=== PATIENT | female | born 1980 | race Caucasian/White ===

== ENCOUNTER 2018-12-27 14:05 | Emergency (ER) | payer SELFPAY ==
[2018-12-27] MEDS ORDERED: NACL 0.9% 1000 ML 1,000 ML ONE (14:20)
[2018-12-27 15:36] LABS: Basophils % (Auto) 0.4 % (0.0-1.8); Eosinophils % (Auto) 0.1 % (0.0-4.3); Hematocrit 42.1 % (30.3-42.9); Hemoglobin 14.5 gm/dl (10.1-14.3); Lymphocytes # (Auto) 1.6 K/mm3 (1.2-5.4); Lymphocytes % (Auto) 12.9 % (13.4-35.0); Mean Corpuscular HGB Conc 35 % (30-34); Mean Corpuscular Hemoglobin 31 pg (28-32); Mean Corpuscular Volume 90 fl (79-97); Monocytes # (Auto) 0.5 K/mm3 (0.0-0.8); Platelet Count 237 K/mm3 (140-440); Red Cell Distribution Width 12.5 % (13.2-15.2)
[2018-12-27 15:47] LABS: INR 1.14 (0.87-1.13)
[2018-12-27 15:48] LABS: Partial Thromboplastin Time 25.5 Sec. (24.2-36.6)
[2018-12-27 15:54] LABS: BUN/Creatinine Ratio 17; Blood Urea Nitrogen 12 mg/dL (7-17); Calcium 8.6 mg/dL (8.4-10.2); Hemolysis Index 5
[2018-12-27] MEDS ORDERED: HumuLIN R IV ONE (15:57)
--- NOTE | 2018-12-27 15:59 | Emergency Department Report ---
ED General Adult HPI - General Chief complaint: Syncope Stated complaint: CHEST PAIN Time Seen by Provider: 12/27/18 14:41 Source: patient, family Mode of arrival: Stretcher Limitations: Language Barrier - History of Present Illness Initial comments: 38 year old female with an episode of dizziness and rapid breathing which began at about noon. Later she developed some substernal chest as Her. She denies previous similar episodes. She has had no recent traveling. She denies family history of PE or DVT. I will obtain this history myself in [place]. He also tells me that she had gestational diabetes but that resolved after her . I get the impression that she does not go to the doctor very often. She states that he does not think she was anxious during these episodes. -: Gradual - Related Data Previous Rx's Medication Instructions Recorded Last Taken Type metFORMIN [Glucophage] 500 mg PO BID #60 tablet 12/27/18 Unknown Rx Allergies Allergy/AdvReac Type Severity Reaction Status Date / Time No Known Allergies Allergy Verified 12/27/18 14:20 ED Review of Systems ROS: Stated complaint: CHEST PAIN Other details as noted in HPI Constitutional: other (dizziness). denies: chills, fever Eyes: denies: eye pain, eye discharge, vision change ENT: denies: ear pain, throat pain Respiratory: shortness of breath. denies: cough, wheezing Cardiovascular: chest pain. denies: palpitations Endocrine: no symptoms reported Gastrointestinal: denies: abdominal pain, nausea, diarrhea Genitourinary: denies: urgency, dysuria, discharge Musculoskeletal: denies: back pain, joint swelling, arthralgia Skin: denies: rash, lesions Neurological: denies: headache, weakness, paresthesias Psychiatric: denies: anxiety, depression Hematological/Lymphatic: denies: easy bleeding, easy bruising ED Past Medical Hx - Past Medical History Previous Medical History?: Yes Hx Hypertension: Yes Hx Diabetes: Yes (gestational) - Surgical History Past Surgical History?: No - Social History Smoking Status: Never Smoker Substance Use Type: None - Medications Home Medications: Home Medications Medication Instructions Recorded Confirmed Last Taken Type metFORMIN [Glucophage] 500 mg PO BID #60 tablet 12/27/18 Unknown Rx ED Physical Exam - General Limitations: No Limitations General appearance: alert, in no apparent distress - Head Head exam: Present: atraumatic, normocephalic - Eye Eye exam: Present: normal appearance - ENT ENT exam: Present: mucous membranes moist - Neck Neck exam: Present: normal inspection - Respiratory Respiratory exam: Present: normal lung sounds bilaterally. Absent: respiratory distress - Cardiovascular Cardiovascular Exam: Present: regular rate, normal rhythm. Absent: systolic murmur, diastolic murmur, rubs, gallop - GI/Abdominal GI/Abdominal exam: Present: soft, normal bowel sounds. Absent: distended, tenderness, guarding, rebound, rigid - Extremities Exam Extremities exam: Present: normal inspection - Back Exam Back exam: Present: normal inspection - Neurological Exam Neurological exam: Present: alert, oriented X3, CN II-XII intact. Absent: motor sensory deficit - Psychiatric Psychiatric exam: Present: normal affect, normal mood - Skin Skin exam: Present: warm, dry, intact, normal color. Absent: rash ED Course Vital Signs 12/27/18 12/27/18 14:22 15:44 Temperature 98.7 F Pulse Rate 128 H 81 Respiratory 16 16 Rate Blood Pressure 118/78 Blood Pressure 106/69 [Left] O2 Sat by Pulse 100 96 Oximetry - Reevaluation(s) Reevaluation #1: Have explained in detail to the family and the patient the need for hospitalization. We have identified her diabetes, acidosis, ordered a VQ scan as angiography is not currently available. I've arranged for hospitalization. I've explained the importance of hospitalization and further workup the patient's chest pain. Despite this she has elected to sign out AGAINST MEDICAL ADVICE. She has full mental capacity to make a decision. I can put her on metformin and refer her to the [facility]. She is in need of further diagnostic evaluation that I cannot perform at this time. 12/27/18 16:41 ED Medical Decision Making - Lab Data Result diagrams: 12/27/18 15:16 12/27/18 15:16 Laboratory Results - last 24 hr 12/27/18 12/27/18 12/27/18 14:21 15:16 15:16 WBC 12.7 H RBC 4.70 Hgb 14.5 H Hct 42.1 MCV 90 MCH 31 MCHC 35 H RDW 12.5 L Plt Count 237 Lymph % (Auto) 12.9 L [place] % (Auto) 4.0 Eos % (Auto) 0.1 Baso % (Auto) 0.4 Lymph # 1.6 [place] # 0.5 Eos # 0.0 Baso # 0.0 Seg Neutrophils % 82.6 H Seg Neutrophils # 10.5 H PT 14.3 INR 1.14 H APTT 25.5 D-Dimer 341.68 H Sodium Potassium Chloride Carbon Dioxide Anion Gap BUN Creatinine Estimated GFR BUN/Creatinine Ratio Glucose POC Glucose 331 H Calcium Troponin T 12/27/18 15:16 WBC RBC Hgb Hct MCV MCH MCHC RDW Plt Count Lymph % (Auto) [place] % (Auto) Eos % (Auto) Baso % (Auto) Lymph # [place] # Eos # Baso # Seg Neutrophils % Seg Neutrophils # PT INR APTT D-Dimer Sodium 135 L Potassium 3.8 Chloride 105.3 Carbon Dioxide 18 L Anion Gap 16 BUN 12 Creatinine 0.7 Estimated GFR > 60 BUN/Creatinine Ratio 17 Glucose 323 H POC Glucose Calcium 8.6 Troponin T < 0.010 Critical care attestation.: If time is entered above; I have spent that time in minutes in the direct care of this critically ill patient, excluding procedure time. ED Disposition Clinical Impression: Elevated d-dimer Chest pain Qualifiers: Chest pain type: unspecified Qualified Code(s): R07.9 - Chest pain, unspecified Diabetes Qualifiers: Diabetes mellitus type: type 2 Diabetes mellitus predatory animal exterminator insulin use: without half-way use Diabetes mellitus complication status: with other specified complication Qualified Code(s): E11.69 - Type 2 diabetes mellitus with other specified complication Disposition: DC-07 LEFT AGAINST MED ADVICE Is pt being admited?: No Does the pt Need Aspirin: No Condition: Stable Instructions: Chest Pain (ED), Diabetes Mellitus Type 2 in Adults (ED) Additional Instructions: I have strongly recommended he stay for further evaluation and treatment. He was signed out AGAINST MEDICAL ADVICE. Despite this her refrigerator returned for further evaluation and treatment at any time you desire. Certainly follow up as soon as possible with the primary care clinic. I am going to prescribe medication for your diabetes. Prescriptions: metFORMIN [Glucophage] 500 mg PO BID #60 tablet Referrals: [facility] [Provider Group] - 24 Hours Time of Disposition: 16:43
--- NOTE | 2018-12-27 16:18 | XRay Report ---
CHEST 1 VIEW INDICATION / CLINICAL INFORMATION: aracelis. COMPARISON: None available. FINDINGS: SUPPORT DEVICES: None. HEART / MEDIASTINUM: No significant abnormality. LUNGS / PLEURA: No significant pulmonary or pleural abnormality. No pneumothorax. ADDITIONAL FINDINGS: No significant additional findings. IMPRESSION: 1. No acute findings. Signer Name: Gerardo Christianson MD Signed: 12/27/2018 4:14 PM Workstation Name: [id number]
[2018-12-27 16:46] VITALS: BP 119/70
[2018-12-27] MEDS ORDERED: NACL 0.9% 1000 ML IV ONE (17:23)
== END 2018-12-27 17:27 | disposition left against medical advice (07) ==
LOC: ED 14:05
DX: R07.89 Other chest pain (principal); R79.89 Other specified abnormal findings of blood chemistry; R42 Dizziness and giddiness; E11.9 Type 2 diabetes mellitus without complications; I10 Essential (primary) hypertension; Z79.84 Long term (current) use of oral hypoglycemic drugs
CPT/HCPCS: 36415; 71045; 80048; 82962; 84484; 85025; 85379; 85610; 85730; 93005; 93010; 96374; 96375; 99284; J7030; J1815